=== PATIENT | male | born 1985 | race Caucasian/White ===

== ENCOUNTER 2020-12-21 02:20 | Emergency (ER) | payer SELFPAY ==
--- NOTE | 2020-12-21 03:33 | EDM.PDOC ---
ED HPI GENERAL MEDICAL PROBLEM - General Chief Complaint: General Stated Complaint: Fever, chills, body aches, cough Time Seen by Provider: 12/21/20 03:15 Source of Information: Reports: Patient History Limitations: Reports: No Limitations - History of Present Illness INITIAL COMMENTS - FREE TEXT/NARRATIVE: Patient comes emergency department today with complaints of fever body aches cough congestion malaise fatigue. 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 He has a history of hypertension. Last day or so he has had a dry hacking nonproductive cough fever of about 101. No shortness of breath no pain in his chest. No weakness dizziness lightheadedness. He has generalized malaise and fatigue. No nausea no vomiting. No rash sores or lesions. 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 He last took ibuprofen yesterday for his fever. He has been eating and drinking well. No respiratory distress. He denies any loss of taste or smell. Body aches Pain Score (Numeric/FACES): 5 - Related Data Allergies Allergy/AdvReac Type Severity Reaction Status Date / Time No Known Allergies Allergy Verified 12/21/20 02:51 Home Meds: Home Meds . [No Known Home Meds] 12/21/20 [History] Past Medical History - Past Health History Medical/Surgical History: Denies Medical/Surgical History Social & Family History - Tobacco Use Tobacco Use Status *Q: Unknown Ever Used Tobacco ED ROS GENERAL - Review of Systems Review Of Systems: Comprehensive ROS is negative, except as noted in HPI. ED EXAM, GENERAL - Physical Exam Exam: See Below Exam Limited By: No Limitations General Appearance: Alert, WD/WN, No Apparent Distress Ears: Normal External Exam, Normal TMs Nose: Normal Inspection, Normal Mucosa Throat/Mouth: Normal Inspection, Normal Lips, Normal Oropharynx, Normal Voice Head: Atraumatic, Normocephalic Neck: Normal Inspection, Supple, Non-Tender, Full Range of Motion Respiratory/Chest: No Respiratory Distress, Lungs Clear, Normal Breath Sounds, No Accessory Muscle Use, Chest Non-Tender Cardiovascular: Normal Peripheral Pulses, Regular Rate, Rhythm, Tachycardia GI/Abdominal: Normal Bowel Sounds, Soft, Non-Tender Back Exam: Normal Inspection, Full Range of Motion Extremities: Normal Inspection, Normal Range of Motion, No Pedal Edema, Normal Capillary Refill Neurological: Alert, Oriented, Normal Cognition, No Motor/Sensory Deficits Psychiatric: Normal Affect, Normal Mood Skin Exam: Warm, Dry, Intact, Normal Color, No Rash Lymphatic: No Adenopathy Course - Vital Signs Last Recorded V/S: Last Vital Signs Temp 97.9 F 12/21/20 02:20 Pulse 110 H 12/21/20 02:20 Resp 20 12/21/20 02:20 BP 144/78 H 12/21/20 02:20 Pulse Ox 98 12/21/20 02:20 - Orders/Labs/Meds Labs: Laboratory Tests 12/21/20 Range/Units 03:05 Influenza Type A RNA Negative (NEGATIVE) Influenza Type B RNA Negative (NEGATIVE) SARS-CoV-2 RNA ([facility]) Positive H (NEGATIVE) Meds: Medications Discontinued Medications Generic Name Dose Route Start Last Admin Trade Name Humphreyq PRN Reason Stop Dose Admin Acetaminophen 1,000 mg 12/21/20 04:29 12/21/20 04:45 Acetaminophen 500 Mg Tab PO 12/21/20 04:30 1,000 mg ONETIME ONE Administration - Re-Assessments/Exams Free Text/Narrative Re-Assessment/Exam: Patient's Covid test is positive. He was given a gram of Tylenol because his fever is starting to come back. He is encouraged to increase his fluid intake. The patient is not hypoxic therefore he does not need Decadron. Also with the recent shortage and unavailability he has not a high risk severe candidate for monoclonal antibody therapy. We will discharge him home with symptomatic management. He is comfortable with this plan his questions were answered. Patient was encouraged to drink plenty of fluids. Discussed quarantine and close contact information for coworkers family etc. Departure - Departure Time of Disposition: 04:20 Disposition: Home, Self-Care 01 Clinical Impression: COVID - Discharge Information Instructions: COVID-19: What Your Test Results Mean - [facility] (08/18/2019) Referrals: PCP,None [Primary Care Provider] - Forms: ED Department Discharge Additional Instructions: Quarantine for the next 14 days. Good hand hygiene stay home and away from people. Tylenol as needed for body aches pain and fever. May use Ibuprofen although use this sparingly. Drink plenty of fluids. If you are not urinating every 2 hours you are not drinking enough fluids. Small frequent meals. Vitamine C, 1 gram twice daily. Vitamin D OTC daily. Zinc 50mg daily OTC. Return to the ED if new or worsening symptoms. Notify close contacts of the positive COVID test. Follow up with PCP in the next week if not improving sooner if worse. Sepsis Event Note (ED) - Evaluation Sepsis Screening Result: No Definite Risk - Focused Exam Vital Signs: Vital Signs Temp Pulse Resp BP Pulse Ox 12/21/20 02:20 97.9 F 110 H 20 144/78 H 98
[2020-12-21 04:05] LABS: CORONAVIRUS COVID-19 NAA POSITIVE (NEGATIVE)
[2020-12-21] MEDS ORDERED: Acetaminophen 500 MG Tab PO ONE (04:29)
== END 2020-12-21 04:52 | disposition home or self-care (01) ==
LOC: VM.ED 02:20
DX: U07.1 COVID-19 (principal)
CPT/HCPCS: 0240U; 99283; A9270-GY